=== PATIENT | male | born 1995 | race Asian ===

== ENCOUNTER 2023-09-15 13:14 | Emergency (ER) | payer OTHER ==
[2023-09-15] MEDS ORDERED: Acetaminophen 500 MG Tab PO ONE (13:56)
[2023-09-15] MEDS ORDERED: Ibuprofen 600 MG Tab PO ONE (13:57)
[2023-09-15 14:39] LABS: INFLUENZA A NAA NEGATIVE (NEGATIVE); INFLUENZA B NAA NEGATIVE (NEGATIVE); RESPIRATORY SYNCYTIAL VIR NAA NEGATIVE (NEGATIVE)
[2023-09-15 14:40] LABS: CORONAVIRUS COVID-19 NAA POSITIVE (NEGATIVE)
[2023-09-15] MEDS ORDERED: Take Home: Benzonatate 100 MG, 6 Cap Pack PO ONE (16:19)
== END 2023-09-15 16:31 | disposition home or self-care (01) ==
LOC: DL.ED 13:14
DX: U07.1 COVID-19 (principal)
CPT/HCPCS: 0241U; 87081; 87430; 99283; A9270-GY